=== PATIENT | male | born 1955 | race Caucasian/White ===

== ENCOUNTER 2017-11-10 19:19 | Emergency (ER) | payer OTHER ==
--- NOTE | 2017-11-10 20:09 | ED PDOC ---
HPI: Psych/Substance Abuse Time Seen by Provider: 11/10/17 19:26 Chief Complaint (Nursing): Alcohol Ingestion Chief Complaint (Provider): etoh History Per: Patient, EMS Additional Complaint(s): 62 year old male presents via EMS acutely intoxicated. Patient was found by EMS asleep on the sidewalk. EMS thinks patient may have fallen and hit his head as he has contusion to posterior scalp. Past Medical History Reviewed: Historical Data, Nursing Documentation, Vital Signs, Unable To Obtain Vital Signs: Last Vital Signs Temp 98.0 F 11/10/17 19:21 Pulse 79 11/10/17 19:21 Resp 18 11/10/17 19:21 BP 126/75 11/10/17 19:21 Pulse Ox 96 11/10/17 19:21 - Family History Family History: States: Unknown Family Hx - Allergies Allergies/Adverse Reactions: Allergies Allergy/AdvReac Type Severity Reaction Status Date / Time Unobtainable Allergy Verified 11/10/17 19:23 Review of Systems ROS Statement: Except As Marked, All Systems Reviewed And Found Negative Neurological: Positive for: Other (? head injury, scalp contusion) Psych: Positive for: Other (etoh) Physical Exam - Reviewed Nursing Documentation Reviewed: Yes Vital Signs Reviewed: Yes - Physical Exam Appears: Positive for: Well, Non-toxic, No Acute Distress Head Exam: Negative for: ATRAUMATIC (contusion to posterior scalp) Skin: Positive for: Normal Color. Negative for: Rash Eye Exam: Positive for: Normal appearance, EOMI, PERRL Cardiovascular/Chest: Positive for: Regular Rate, Rhythm Respiratory: Positive for: Normal Breath Sounds Neurologic/Psych: Positive for: Gait (unsteady), Other (intoxicated, does not answer questions appropriately ) - Laboratory Results Result Diagrams: 11/10/17 21:25 11/10/17 21:25 - ECG O2 Sat by Pulse Oximetry: 96 Pulse Ox Interpretation: Normal - Other Rad CT head X-Ray: Read By Radiologist X-Ray Interpretation: see below Medical Decision Making Medical Decision Makin62 year old intoxicated male with ? head injury Plan: CBC CMP BAL UDS CT head CT: FINDINGS: Brain: [id number] atrophy. No intracranial hemorrhage. No mass. Minimal decreased attenuation within periventricular white matter. Probable chronic lacunar infarct about RIGHT basal ganglia. No edema. Ventricles : No hydrocephalus. Bones/joints: No acute fracture. Soft tissues: Unremarkable. Sinuses: Scattered minimal mucosal thickening. Mastoid air cells: Partial opacification of LEFT mastoid. Auditory system: Cerumen. Orbits: Unremarkable as visualized. IMPRESSION: 1. No intracranial hemorrhage. 2. Nonspecific white matter changes. 3. Mastoid disease. Disposition - Clinical Impression Clinical Impression: Alcohol intoxication, Scalp contusion - Patient ED Disposition Is Patient to be Admitted: Transfer of Care - Disposition Disposition: Transfer of Care Disposition Time: 23:55 Condition: FAIR Forms: [employer] (Turkish) Patient Signed Over To: Sejal Marte Handoff Comments: Signed out pending sobriety and final disposition Results - Lab Results Lab Results: 11/10/17 11/10/17 11/10/17 21:25 21:25 20:39 WBC 6.8 RBC 4.53 Hgb 15.1 Hct 45.0 MCV 99.3 H MCH 33.3 H MCHC 33.6 RDW 13.9 Plt Count 231 MPV 7.4 Neut % (Auto) 54.2 Lymph % (Auto) 33.6 Izard % (Auto) 8.8 Eos % (Auto) 2.9 Baso % (Auto) 0.5 Neut # (Auto) 3.7 Lymph # (Auto) 2.3 Izard # (Auto) 0.6 Eos # (Auto) 0.2 Baso # (Auto) 0.0 Sodium 151 H Potassium 4.0 Chloride 107 Carbon Dioxide 24 Anion Gap 24 H BUN 10 Creatinine 0.7 L Est GFR ( Amer) > 60 Est GFR (Non-Af Amer) > 60 POC Glucose (mg/dL) 128 H Random Glucose 141 H Calcium 9.0 Total Bilirubin 0.3 AST 45 ALT 39 Alkaline Phosphatase 96 Total Protein 7.3 Albumin 3.8 Globulin 3.5 Albumin/Globulin Ratio 1.1 Alcohol, Quantitative 368 H*
[2017-11-10 21:29] LABS: BASO % 0.5 % (0.0-2.0); EOS # 0.2 K/uL (0.0-0.7); EOS % 2.9 % (0.0-4.0); HEMOGLOBIN 15.1 g/dL (12.0-18.0); LYMPH # 2.3 K/uL (1.0-4.3); LYMPH % 33.6 % (20.0-40.0); MEAN CELL VOLUME 99.3 fl (80.0-94.0); MEAN CORPUSCULAR HEMOGLOBIN 33.3 pg (27.0-31.0); MEAN CORPUSCULAR HGB CONC 33.6 g/dL (33.0-37.0); MEAN PLATELET VOLUME 7.4 fl (7.2-11.7); MONO # 0.6 K/uL (0.0-0.8); MONO % 8.8 % (0.0-10.0); NEUT # 3.7 K/uL (1.8-7.0); NEUT % 54.2 % (50.0-75.0); RBC 4.53 Mil/uL (4.40-5.90); RED CELL DISTRIBUTION WIDTH 13.9 % (11.5-14.5); WHITE BLOOD COUNT 6.8 K/uL (4.8-10.8)
[2017-11-10 21:51] LABS: ALB/GLOB RATIO 1.1 (1.0-2.1); ALBUMIN 3.8 g/dL (3.5-5.0); ALT/SGPT 39 U/L (21-72); AST/SGOT 45 U/L (17-59); BLOOD UREA NITROGEN 10 mg/dl (9-20); GFR AFRICAN-AMERICAN > 60; GFR NON-AFRICAN AMERICAN > 60
--- NOTE | 2017-11-10 22:49 | CT ---
EXAM: CT Head Without Intravenous Contrast CLINICAL HISTORY: 62 years old, male; Injury or trauma; Fall; Initial encounter; Concussion / head injury; Consciousness not specified; Additional info: ETOH, ? fall TECHNIQUE: Axial computed tomography images of the head/brain without intravenous contrast. All CT scans at this facility use one or more dose reduction techniques, viz.: automated exposure control; ma/kV adjustment per patient size (including targeted exams where dose is matched to indication; i.e. head); or iterative reconstruction technique. Coronal and sagittal reformatted images were created and reviewed. COMPARISON: No relevant prior studies available. FINDINGS: Brain: [id number] atrophy. No intracranial hemorrhage. No mass. Minimal decreased attenuation within periventricular white matter. Probable chronic lacunar infarct about RIGHT basal ganglia. No edema. Ventricles: No hydrocephalus. Bones/joints: No acute fracture. Soft tissues: Unremarkable. Sinuses: Scattered minimal mucosal thickening. Mastoid air cells: Partial opacification of LEFT mastoid. Auditory system: Cerumen. Orbits: Unremarkable as visualized. IMPRESSION: 1. No intracranial hemorrhage. 2. Nonspecific white matter changes. 3. Mastoid disease. 4. Incidental/non-acute findings are described above.
[2017-11-11 00:10] VITALS: TEMP 98.2
--- NOTE | 2017-11-11 05:27 | ED PDOC ---
- Laboratory Results Result Diagrams: 11/10/17 21:25 11/10/17 21:25 - ECG O2 Sat by Pulse Oximetry: 96 - Progress ED Course And Treament: Case endorsed to fha underwriter from Alexis MORA pending sobriety 1:30 Patient sleeping, no distress 3:00 Patient sleeping, no distress 4:30 Patient sleeping, no distress 6:00 Patient awake, alert, oriented x3. Ambulating steady gait Stable for discharge Disposition - Clinical Impression Clinical Impression: Alcohol intoxication, Scalp contusion - POA Present On Arrival: None - Disposition Disposition: Routine/Home Disposition Time: 06:00 Condition: STABLE Instructions: Contusion (DC), Alcohol Abuse and Alcoholism (DC) Print Language: MALAY
[2017-11-11 06:25] VITALS: BP 116/72; PULSE 73; RESP 16
[2017-11-12 05:01] VITALS: O2SAT 96
== END 2017-11-11 06:25 | disposition home or self-care (01) ==
LOC: H.ER 19:19
DX: F10.129 Alcohol abuse with intoxication, unspecified (principal); S00.03XA Contusion of scalp, initial encounter; W19.XXXA Unspecified fall, initial encounter; Y92.89 Other specified places as the place of occurrence of the external cause

== ENCOUNTER 2018-12-08 22:13 | Emergency (ER) | payer OTHER ==
--- NOTE | 2018-12-08 23:09 | ED PDOC ---
HPI: Psych/Substance Abuse Time Seen by Provider: 12/08/18 22:30 Chief Complaint (Nursing): Alcohol Ingestion History Per: Patient Additional Complaint(s): Pt. brought in by ambulance for public intoxication. Pt. admits to "drinking all day." Offers no complaints. Past Medical History Reviewed: Historical Data, Nursing Documentation, Vital Signs Vital Signs: Last Vital Signs Temp 97.4 F L 12/08/18 22:15 Pulse 79 12/08/18 22:15 Resp 17 12/08/18 22:15 BP 127/87 12/08/18 22:15 Pulse Ox 96 12/08/18 22:15 - Medical History PMH: Denies: Diabetes (pt denies) - Family History Family History: States: No Known Family Hx - Allergies Allergies/Adverse Reactions: Allergies Allergy/AdvReac Type Severity Reaction Status Date / Time No Known Allergies Allergy Verified 12/08/18 22:19 Review of Systems ROS Statement: Except As Marked, All Systems Reviewed And Found Negative Physical Exam - Reviewed Nursing Documentation Reviewed: Yes Vital Signs Reviewed: Yes - Physical Exam Appears: Positive for: Well, Non-toxic, No Acute Distress Head Exam: Positive for: ATRAUMATIC, NORMAL INSPECTION, NORMOCEPHALIC Skin: Positive for: Normal Color, Warm. Negative for: Rash Eye Exam: Positive for: EOMI, Normal appearance, PERRL ENT: Positive for: Normal ENT Inspection Neck: Positive for: Normal, Painless ROM Cardiovascular/Chest: Positive for: Regular Rate, Rhythm, Chest Non Tender Respiratory: Positive for: CNT, Normal Breath Sounds Gastrointestinal/Abdominal: Positive for: Normal Exam, Soft. Negative for: Tenderness Back: Positive for: Normal Inspection. Negative for: L CVA Tenderness, R CVA Tenderness, Vertebral Tenderness Extremity: Positive for: Normal ROM Neurological/Psych: Positive for: Awake, Alert, Oriented, Other (slurred speech, AOB) - ECG O2 Sat by Pulse Oximetry: 96 - Progress ED Course And Treament: FSBS: 275 Labs ordered. Disposition - Clinical Impression Clinical Impression: Alcohol intoxication, Hyperglycemia - Patient ED Disposition Is Patient to be Admitted: Transfer of Care (Signed out to Estuardo MORA pending sobriety and labs) - Disposition Disposition Time: 23:09 Condition: FAIR
[2018-12-09 00:13] LABS: BASO # 0.1 K/uL (0.0-0.2); BASO % 1.1 % (0.0-2.0); EOS # 0.1 K/uL (0.0-0.7); EOS % 2.7 % (0.0-4.0); HEMOGLOBIN 14.5 g/dL (12.0-18.0); LYMPH % 37.2 % (20.0-40.0); MEAN CELL VOLUME 100.4 fl (80.0-94.0); MEAN CORPUSCULAR HEMOGLOBIN 33.9 pg (27.0-31.0); MEAN CORPUSCULAR HGB CONC 33.8 g/dL (33.0-37.0); MEAN PLATELET VOLUME 7.3 fl (7.2-11.7); MONO # 0.5 K/uL (0.0-0.8); MONO % 9.6 % (0.0-10.0); NEUT # 2.7 K/uL (1.8-7.0); NEUT % 49.4 % (50.0-75.0); NRBC % 0.1 % (0.0-0.0); RBC 4.27 Mil/uL (4.40-5.90); RED CELL DISTRIBUTION WIDTH 12.8 % (11.5-14.5); WHITE BLOOD COUNT 5.4 K/uL (4.8-10.8)
[2018-12-09 00:29] LABS: ALB/GLOB RATIO 1.3 (1.0-2.1); ALBUMIN 3.6 g/dL (3.5-5.0); ALT/SGPT 62 U/L (21-72); AST/SGOT 68 U/L (17-59); BLOOD UREA NITROGEN 14 mg/dl (9-20); CALCIUM 8.3 mg/dL (8.4-10.2); GFR NON-AFRICAN AMERICAN > 60
[2018-12-09 02:26] LABS: BARBITURATES, UR NEGATIVE (NEGATIVE); BENZODIAZEPINES, UR NEGATIVE (NEGATIVE); OPIATES, UR NEGATIVE (NEGATIVE); PHENCYCLIDINE, UR NEGATIVE (NEGATIVE)
[2018-12-09 02:41] LABS: URINE BILIRUBIN NEGATIVE (NEGATIVE); URINE BLOOD NEGATIVE (NEGATIVE); URINE CLARITY SLIGHTY-CLOUDY (Clear); URINE COLOR YELLOW (YELLOW); URINE GLUCOSE (UA) >=500 mg/dL (NEGATIVE); URINE LEUKOCYTE ESTERASE NEG Leu/uL (Negative); URINE PROTEIN NEGATIVE (NEGATIVE); URINE UROBILINOGEN 0.2-1.0 mg/dL (0.2-1.0)
--- NOTE | 2018-12-09 04:32 | ED PDOC ---
- Laboratory Results Result Diagrams: 12/09/18 00:03 12/09/18 00:03 Lab Results: Total Bilirubin 0.5 mg/dl (0.2-1.3) 12/09/18 00:03 AST 68 U/L (17-59) H D 12/09/18 00:03 ALT 62 U/L (21-72) 12/09/18 00:03 Alkaline Phosphatase 72 U/L (38-126) 12/09/18 00:03 Total Protein 6.3 G/DL (6.3-8.2) 12/09/18 00:03 Albumin 3.6 g/dL (3.5-5.0) 12/09/18 00:03 Globulin 2.8 gm/dL (2.2-3.9) 12/09/18 00:03 Albumin/Globulin Ratio 1.3 (1.0-2.1) 12/09/18 00:03 Urine Color Yellow (YELLOW) 12/09/18 01:49 Urine Clarity Slighty-cloudy (Clear) 12/09/18 01:49 Urine pH 6.0 (5.0-8.0) 12/09/18 01:49 Ur Specific [place] 1.006 (1.003-1.030) 12/09/18 01:49 Urine Protein Negative mg/dL (NEGATIVE) 12/09/18 01:49 Urine Glucose (UA) >=500 mg/dL (NEGATIVE) 12/09/18 01:49 Urine Ketones Negative mg/dL (NEGATIVE) 12/09/18 01:49 Urine Blood Negative (NEGATIVE) 12/09/18 01:49 Urine Nitrate Negative (NEGATIVE) 12/09/18 01:49 Urine Bilirubin Negative (NEGATIVE) 12/09/18 01:49 Urine Urobilinogen 0.2-1.0 mg/dL (0.2-1.0) 12/09/18 01:49 Ur Leukocyte Esterase Neg Andreea/uL (Negative) 12/09/18 01:49 Urine RBC (Auto) 2 /hpf (0-3) 12/09/18 01:49 Urine Microscopic WBC 1 /hpf (0-5) 12/09/18 01:49 - ECG O2 Sat by Pulse Oximetry: 96 - Progress ED Course And Treament: Case endorsed to show card writer from Michelle MORA pending sobriety 00:00 Patient sleeping; no distress 1:30 Patient sleeping; no distress 3:00 Patient sleeping; no distress 4:30 Patient awake, alert, oriented x3. Ambulating steady gait Patient was educated on elevated blood sugar and advised to follow up with PMD within 2-3 days Return precautions given Disposition - Clinical Impression Clinical Impression: Alcohol intoxication, Hyperglycemia - POA Present On Arrival: None - Disposition Referrals: Harsh Young Jr., MD [Primary Care Provider] - [facility] [Outside] Disposition: Routine/Home Disposition Time: 04:33 Condition: IMPROVED Instructions: Hyperglycemia, Adult, Alcohol Abuse and Alcoholism (DC) Print Language: BELARUSIAN
[2018-12-09 04:40] VITALS: BP 141/88; PULSE 74; RESP 18; TEMP 98; O2SAT 95
== END 2018-12-09 04:40 | disposition home or self-care (01) ==
LOC: H.ER 22:13
DX: F10.129 Alcohol abuse with intoxication, unspecified (principal)